=== PATIENT | female | born 2000 | race Hispanic/Latino ===

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

== ENCOUNTER 2022-06-09 18:47 | Emergency (ER) | payer MEDICAID ==
[~2022-06-09] VITALS: Ht 160 cm; Wt 57.2 kg
[2022-06-09] MEDS ORDERED: TETANUS/DIPHTHERIA TOXOID [ADULT] 0.5 ML VIAL IM ONE (19:30)
[2022-06-09 22:06] VITALS: BP 130/75
== END 2022-06-09 22:15 | disposition home or self-care (01) ==
LOC: EDH 18:47
DX: S01.511A Laceration without foreign body of lip, initial encounter (principal); Y04.2XXA Assault by strike against or bumped into by another person, initial encounter; Y93.89 Activity, other specified; Y92.89 Other specified places as the place of occurrence of the external cause; Y99.8 Other external cause status
CPT/HCPCS: 12011; 90471; 90714